=== PATIENT | male | born 1980 | race Caucasian/White ===

== ENCOUNTER 2023-11-17 18:30 | Observation (INO) | payer OTHER ==
[~2023-11-17] VITALS: Ht 177.8 cm; Wt 94.7 kg
[2023-11-17] MEDS ORDERED: ZOLO100T PO (18:52)
[2023-11-17] MEDS ORDERED: PRIL20TA2 PO (18:53)
[2023-11-17] MEDS ORDERED: ATIV2TAB PO (18:54)
[2023-11-17 20:17] LABS: BASO # 0.1 10^3/uL (0.0-0.2); BASO % 0.4 % (0.0-1.0); EOS % 0.1 % (0.0-3.0); HEMATOCRIT 40.3 % (42.0-52.0); HEMOGLOBIN 14.4 g/dl (13.5-17.5); LYMPH # 1.3 10^3/uL (1.5-5.0); MEAN CORPUSCULAR HEMOGLOBIN 29.1 pg (27.0-33.0); MEAN CORPUSCULAR HGB CONC 35.7 g/dl (32.0-36.5); MEAN CORPUSCULAR VOLUME 81.6 fl (80.0-96.0); MONO # 0.8 10^3/uL (0.0-0.8); MONO % 6.7 % (2.0-8.0); NEUTROPHILS % 80.3 % (36.0-66.0); PLATELET COUNT, AUTOMATED 217 10^3/uL (150-450); RED BLOOD COUNT 4.94 10^6/uL (4.30-6.10); WHITE BLOOD COUNT 11.2 10^3/uL (4.0-10.0)
[2023-11-17 20:20] LABS: LIPASE 107 U/L (12-53)
[2023-11-17 20:21] LABS: ETHYL ALCOHOL (ETHANOL) 0.101 % (0.000-0.010)
[2023-11-17] MEDS: MORPHINE 4 MG/ML 1ML VIAL IV PRN (20:21)
[2023-11-17 20:22] LABS: ALBUMIN 4.3 G/DL (3.2-5.2); ALKALINE PHOSPHATASE 126 U/L (46-116); ALT/SGPT 235 U/L (7.0-40); AMYLASE 68 U/L (30-118); AST/SGOT 187 U/L (<34); BILIRUBIN,DIRECT 0.2 MG/DL (<0.4); BILIRUBIN,TOTAL 0.8 MG/DL (0.3-1.2); CK-MB VALUE MASS 9.3 NG/ML (<3.6); TOTAL PROTEIN 7.9 G/DL (5.7-8.2)
[2023-11-17 20:23] LABS: CPK CREATINE PHOSPHOKINASE 661 U/L (46-171)
[2023-11-17] MEDS: ONDANSETRON 4MG 2ML VIAL IV ONE (20:23)
[2023-11-17] MEDS: NS 1,000 ML IV ONE (20:24)
[2023-11-17 20:33] LABS: INR 1.04; PARTIAL THROMBOPLASTIN TIME 25.4 SECONDS (24.8-34.2); PROTHROMBIN TIME 13.3 SECONDS (12.5-14.5)
[2023-11-17 20:47] LABS: APPEARANCE, URINE HAZY (CLEAR); BACTERIA, URINE AUTO NEGATIVE (NEGATIVE); BILIRUBIN, URINE AUTO NEGATIVE (NEGATIVE); BLOOD, URINE BLOOD 3+ (NEGATIVE); COLOR, URINE YELLOW (YELLOW); GLUCOSE, URINE (UA) AUTO 3+ mg/dL (NEGATIVE); KETONE, URINE AUTO 1+ mg/dL (NEGATIVE); LEUKOCYTE ESTERASE, URINE AUTO NEGATIVE (NEGATIVE); MUCUS, URINE SMALL (NEGATIVE); NITRITE, URINE AUTO NEGATIVE (NEGATIVE); PROTEIN, URINE AUTO 2+ mg/dL (NEGATIVE); RBC, URINE AUTO 35 /HPF (0-3); SPECIFIC GRAVITY URINE AUTO 1.037 (1.002-1.035); SQUAMOUS EPITHELIAL CELL UR AU 2 /HPF (0-6); UROBILINOGEN, URINE AUTO 0.2 mg/dL (0.0-2.0); WBC, URINE AUTO 1 /HPF (0-3)
[2023-11-17 20:57] LABS: AMPHETAMINES LEVEL URINE NEGATIVE (NEGATIVE); BARBITURATES URINE NEGATIVE (NEGATIVE); BENZODIAZEPINES URINE NEGATIVE (NEGATIVE); COCAINE METABOLITE URINE NEGATIVE (NEGATIVE); METHADONE URINE NEGATIVE (NEGATIVE); OPIATES URINE NEGATIVE (NEGATIVE)
[2023-11-17 20:58] LABS: PHENCYCLIDINE URINE NEGATIVE (NEGATIVE)
[2023-11-17 21:04] LABS: CANNABINOIDS URINE POSITIVE (NEGATIVE)
[2023-11-17 21:04] LABS: BLOOD UREA NITROGEN 12 MG/DL (9-23); CALCIUM LEVEL 9.4 MG/DL (8.5-10.1); CARBON DIOXIDE LEVEL 15 MMOL/L (20-31); CHLORIDE LEVEL 107 MMOL/L (98-107); CREATININE FOR GFR 0.51 MG/DL (0.70-1.30); GLOMERULAR FILTRATION RATE > 60.0 (>60); GLUCOSE, FASTING 283 MG/DL (60-100); POTASSIUM SERUM 3.5 MMOL/L (3.5-5.1); SODIUM LEVEL 139 MMOL/L (136-145)
[2023-11-17] MEDS: NS 1,000 ML IV SCH (21:20)
[2023-11-17] MEDS: KETAMINE HCL 200MG/20ML VIAL IV ONE ×2 (21:30→21:35)
[2023-11-17] MEDS: propofoL 200 MG/20 ML VIAL IV.PROC PRN (21:31)
[2023-11-17] MEDS ORDERED: MOM 30ML SUSPENSION UDC PO PRN (22:15)
[2023-11-17] MEDS ORDERED: propofoL 200 MG/20 ML VIAL As Ordered ONE (22:25)
[2023-11-17] MEDS ORDERED: LORazepam 2 MG TAB PO PRN (22:25)
[2023-11-17] MEDS ORDERED: SUCCINYLCHOLINE 100MG/5ML SYRINGE As Ordered ONE (22:25)
[2023-11-17] MEDS ORDERED: fentaNYL 100 MCG/2 ML INJECTION As Ordered ONE (22:28)
[2023-11-17] MEDS ORDERED: ONDANSETRON 4MG 2ML VIAL As Ordered ONE (22:48)
[2023-11-17] MEDS ORDERED: METOCLOPRAMIDE INJ 10MG/2ML VIAL As Ordered ONE (22:49)
[2023-11-17] MEDS ORDERED: SUGAMMADEX SODIUM 500 MG/5 ML VIAL (BRIDION) As Ordered ONE (23:05)
[2023-11-17] MEDS ORDERED: ROCURONIUM BROMIDE 50MG/5ML VIAL As Ordered ONE (23:05)
[2023-11-17] MEDS ORDERED: KETOROLAC 60MG 2ML VIAL As Ordered ONE (23:08)
[2023-11-17] MEDS ORDERED: ONDANSETRON 4MG 2ML VIAL IV PRN (23:20)
[2023-11-17] MEDS: LR 1,000 ML IV SCH (23:20)
[2023-11-17] MEDS ORDERED: diphenhydrAMINE 50MG/ML VIAL IV PRN (23:20)
[2023-11-17] MEDS ORDERED: fentaNYL 100 MCG/2 ML INJECTION IV PRN (23:20)
[2023-11-17] MEDS ORDERED: HYDROMORPHONE HCL 0.5 MG/ 0.5 ML SYRINGE IV PRN (23:20)
[2023-11-17] MEDS ORDERED: oxyCODONE 5MG TAB PO PRN (23:20)
[2023-11-18] VITALS (10 sets, daily range): BP systolic 139–164; BP diastolic 82–101; TEMP 93.9–98.1; O2SAT 94–98
[2023-11-18] MEDS: THIAMINE 100 MG TAB PO SCH (00:34)
[2023-11-18] MEDS: ACETAMINOPHEN TAB 650MG DOSE (2X325MG) PO PRN (00:34)
[2023-11-18] MEDS: NS 1,000 ML IV SCH (00:35)
[2023-11-18 00:40] LABS: VENOUS BASE EXCESS -4.2 (-2.0-2.0); VENOUS HCO3 19.9 MMOL/L (23.0-27.0); VENOUS O2 SATURATION 97.2 % (60.0-80.0); VENOUS PARTIAL PRESSURE CO2 33.5 mmHg (38.0-50.0); VENOUS PARTIAL PRESSURE O2 97.6 mmHg (30.0-50.0); VENOUS PH 7.391 UNITS (7.330-7.430); VENOUS TOTAL CO2 20.9 MMOL/L (24.0-28.0)
[2023-11-18 01:11] LABS: ACETONE/KETONE 2.29 MMOL/L (0.02-0.27)
[2023-11-18 01:12] LABS: BLOOD UREA NITROGEN 14 MG/DL (9-23); CALCIUM LEVEL 7.7 MG/DL (8.5-10.1); CARBON DIOXIDE LEVEL 19 MMOL/L (20-31); CHLORIDE LEVEL 107 MMOL/L (98-107); CREATININE FOR GFR 0.57 MG/DL (0.70-1.30); GLOMERULAR FILTRATION RATE > 60.0 (>60); GLUCOSE, FASTING 279 MG/DL (60-100); POTASSIUM SERUM 3.9 MMOL/L (3.5-5.1); SODIUM LEVEL 137 MMOL/L (136-145)
[2023-11-18] MEDS ORDERED: GLUCAGON INJ 1MG VIAL SC PRN (02:00)
[2023-11-18] MEDS ORDERED: KETOROLAC 30 MG/ML 1ML VIAL IV PRN (02:00)
[2023-11-18] MEDS ORDERED: DEXTROSE 50% 50ML SYRINGE IV PRN (02:00)
[2023-11-18] MEDS ORDERED: GLUCOSE 4 GM CHEW PO PRN (02:00)
[2023-11-18 02:11] LABS: HEMOGLOBIN A1c 10.7 % (4.0-6.0)
[2023-11-18] MEDS: KETOROLAC 30 MG/ML 1ML VIAL IV PRN (02:18)
[2023-11-18] MEDS ORDERED: PRAZ2CAP PO (02:32)
[2023-11-18] MEDS ORDERED: LORA1TAB23 PO (02:32)
[2023-11-18] MEDS ORDERED: PRAZ1CAP PO (02:32)
[2023-11-18] MEDS ORDERED: HOME MED LIST COMPLETE! XX SCH (02:35)
[2023-11-18] MEDS ORDERED: PILL CUTTER 1 EACH XX PRN (04:05)
[2023-11-18] MEDS: INSULIN LISPRO (NovoLOG) PER UNIT SC SCH (05:45)
[2023-11-18 07:23] LABS: HEMATOCRIT 35.6 % (42.0-52.0); MEAN CORPUSCULAR HGB CONC 34.3 g/dl (32.0-36.5); MEAN CORPUSCULAR VOLUME 84.8 fl (80.0-96.0); PLATELET COUNT, AUTOMATED 169 10^3/uL (150-450); WHITE BLOOD COUNT 8.9 10^3/uL (4.0-10.0)
[2023-11-18 07:25] LABS: HEMOGLOBIN 12.2 g/dl (13.5-17.5)
[2023-11-18] MEDS ORDERED: INSULIN LISPRO (NovoLOG) PER UNIT SC SCH ×2 (07:30→21:00)
[2023-11-18 07:48] LABS: BLOOD UREA NITROGEN 15 MG/DL (9-23); CALCIUM LEVEL 7.6 MG/DL (8.5-10.1); CARBON DIOXIDE LEVEL 23 MMOL/L (20-31); CHLORIDE LEVEL 105 MMOL/L (98-107); CREATININE FOR GFR 0.59 MG/DL (0.70-1.30); GLOMERULAR FILTRATION RATE > 60.0 (>60); GLUCOSE, FASTING 248 MG/DL (60-100); SODIUM LEVEL 137 MMOL/L (136-145)
[2023-11-18] MEDS: metFORMIN (GLUCOPHAGE) 500MG TAB PO SCH (08:00)
[2023-11-18] MEDS: SITagliptin 50 MG TAB (JANUVIA) PO SCH (08:33)
[2023-11-18] MEDS: DOCUSATE SODIUM 100MG CAPSULE PO SCH (08:33)
[2023-11-18] MEDS: FOLIC ACID 1MG TAB PO SCH (08:33)
[2023-11-18] MEDS: MULTIVITAMINS/MINERALS THERAP 1 TAB PO SCH (08:33)
[2023-11-18] MEDS ORDERED: FOLI1TAB11 PO (12:30)
[2023-11-18] MEDS ORDERED: THIA100TA PO (12:30)
[2023-11-18] MEDS ORDERED: METF500T13 PO (12:30)
[2023-11-18] MEDS ORDERED: SITA50TAB PO (12:30)
== END 2023-11-18 16:15 | disposition home or self-care (01) ==
LOC: M ED 18:30 → M ED INP 18:31 → M MS5PR 23:56
PROVIDERS: ADMIT Student in an Organized Health Care Education/Training Program; ATTEND Student in an Organized Health Care Education/Training Program
DX: S73.035A Other anterior dislocation of left hip, initial encounter (principal); S72.052A Unspecified fracture of head of left femur, initial encounter for closed fracture; V49.60XA Unspecified car occupant injured in collision with unspecified motor vehicles in traffic accident, initial encounter; Y92.410 Unspecified street and highway as the place of occurrence of the external cause; E87.20 Acidosis, unspecified; R74.01 Elevation of levels of liver transaminase levels; R79.89 Other specified abnormal findings of blood chemistry; K21.9 Gastro-esophageal reflux disease without esophagitis; F32.A Depression, unspecified; F43.10 Post-traumatic stress disorder, unspecified; F10.10 Alcohol abuse, uncomplicated; F17.210 Nicotine dependence, cigarettes, uncomplicated; Z79.899 Other long term (current) drug therapy
CPT/HCPCS: 27252; 36415; 70450; 71045; 72125; 72170; 72192; 73552; 76000; 80048; 80076; 80307; 81001; 82010; 82077; 82150; 82550; 82553; 82803; 83036; 83605; 83690; 84484; 85025; 85027; 85610; 85730; 86850; 86900; 86901; 93005; 93041; 94760; 96361; 96374; 96375; 99152; 99291; G0390; J0330; J1100; J1885; J2405; J2765; J3010